=== PATIENT | male | born 1945 | race Caucasian/White ===

== ENCOUNTER → 2020-09-26 | Outpatient (CLI) | payer BC | LOC: LAB SHORT 12:41 → LAB 12:41 | DX: D48.5 Neoplasm of uncertain behavior of skin (principal); D22.61 Melanocytic nevi of right upper limb, including shoulder; L81.4 Other melanin hyperpigmentation | CPT/HCPCS: 88305 ==

== ENCOUNTER 2024-01-26 10:26 | Day surgery (SDC) | payer OTHER ==
[~2024-01-26] VITALS: Ht 185.4 cm; Wt 87.9 kg
[~2024-01-26 10:26] MED LIST: Balanced Salt Epinephrine Irrigation Solution 500 mL IR SCH; Lidocaine HCl/Pf 1% 5 ML VIAL XX SCH; Moxifloxacin HCL 0.5 MG/0.1 ML 0.4MLSYR RIGHTEYE SCH; PHENYLEPHRINE\\TROPICAMIDE\\TETRACAINE OPHTHALMIC DILATING SOLN RIGHTEYE PRN; Povidone-Iodine 450 DROP/30 ML Solution RIGHTEYE SCH
[2024-01-26] MEDS ORDERED: NS 500 ML IV ONE (11:17)
[2024-01-26] MEDS ORDERED: WIXELA 100-501 EAC1 IH (11:22)
[2024-01-26] MEDS ORDERED: ESCI10 PO (11:22)
[2024-01-26] MEDS ORDERED: MIRT15 PO (11:22)
[2024-01-26] MEDS ORDERED: VITAMIN B121000 MCG PO (11:23)
[2024-01-26] MEDS ORDERED: Vitamin D1000 UNI1 PO (11:23)
[2024-01-26] MEDS ORDERED: Tetracaine HCl 0.5% Opth Soln 15 ml XX ONE (12:03)
[2024-01-26] MEDS ORDERED: Ondansetron HCl 2 MG / ML 2ML Vial ONE (12:04)
[2024-01-26 12:52] VITALS: BP 126/72
== END 2024-01-26 12:53 | disposition home or self-care (01) ==
LOC: ORSCSDS 10:26
PROVIDERS: Student in an Organized Health Care Education/Training Program
PROC: 08RJ3JZ Replacement of Right Lens with Synthetic Substitute, Percutaneous Approach (ICD-10-PCS; principal; 2024-01-26 12:00)
DX: H25.813 Combined forms of age-related cataract, bilateral (principal); J44.9 Chronic obstructive pulmonary disease, unspecified; F43.10 Post-traumatic stress disorder, unspecified; Z85.46 Personal history of malignant neoplasm of prostate; Z79.899 Other long term (current) drug therapy
CPT/HCPCS: J2405; V2632

== ENCOUNTER 2024-02-02 10:27 | Day surgery (SDC) | payer OTHER ==
[~2024-02-02] VITALS: Ht 185.4 cm; Wt 88.3 kg
[~2024-02-02 10:27] MED LIST changes: +ESCI10 PO; +MIRT15 PO; +Moxifloxacin HCL 0.5 MG/0.1 ML 0.4MLSYR LEFTEYE SCH; -Moxifloxacin HCL 0.5 MG/0.1 ML 0.4MLSYR RIGHTEYE SCH; +PHENYLEPHRINE\\TROPICAMIDE\\TETRACAINE OPHTHALMIC DILATING SOLN LEFTEYE PRN; -PHENYLEPHRINE\\TROPICAMIDE\\TETRACAINE OPHTHALMIC DILATING SOLN RIGHTEYE PRN; +Povidone-Iodine 450 DROP/30 ML Solution LEFTEYE SCH; +Povidone-Iodine 450 DROP/30 ML Solution ONE; -Povidone-Iodine 450 DROP/30 ML Solution RIGHTEYE SCH; +Tetracaine HCl/Pf 0.5% Opth Soln 4 ml ONE; +VITAMIN B121000 MCG PO; +Vitamin D1000 UNI1 PO; +WIXELA 100-501 EAC1 IH
[2024-02-02 11:38] VITALS: BP 122/70
== END 2024-02-02 11:54 | disposition home or self-care (01) ==
LOC: ORSCSDS 10:27
PROVIDERS: Student in an Organized Health Care Education/Training Program
PROC: 08RK3JZ Replacement of Left Lens with Synthetic Substitute, Percutaneous Approach (ICD-10-PCS; principal; 2024-02-02 12:00)
DX: H25.812 Combined forms of age-related cataract, left eye (principal); Z96.1 Presence of intraocular lens; J44.9 Chronic obstructive pulmonary disease, unspecified; F43.10 Post-traumatic stress disorder, unspecified; Z87.891 Personal history of nicotine dependence; Z79.899 Other long term (current) drug therapy
CPT/HCPCS: V2632